=== PATIENT | female | born 1975 | race Caucasian/White ===

== ENCOUNTER → 2019-08-17 | Outpatient (CLI) | payer OTHER | END | disposition home or self-care (01) | LOC: RAD 11:10 | PROVIDERS: ATTEND Internal Medicine Critical Care Medicine | DX: R91.8 Other nonspecific abnormal finding of lung field (principal) | CPT/HCPCS: 71250 ==

== ENCOUNTER → 2020-07-23 | Outpatient (CLI) | payer OTHER | END | disposition home or self-care (01) | LOC: CFH 14:51 | PROVIDERS: ATTEND Internal Medicine | DX: R91.8 Other nonspecific abnormal finding of lung field (principal) | CPT/HCPCS: 71250 ==

== ENCOUNTER 2020-08-21 08:21 | Day surgery (SDC) | payer OTHER ==
[~2020-08-21] VITALS: Ht 167.6 cm; Wt 122.3 kg
[~2020-08-21 08:21] MED LIST: ALBU8.5H8 INH; ALBUTEROL NEB NEB; ASPI81TA45 PO; BACL-19 PO; CETI10TA76 PO; CHOL10003 PO; DICL50TA2 PO; FLUT1BLS INH; LAMO100T63 PO; LOSA25TA25 PO; MONT10TA96 PO; OCRE300V IV; RIZA10TA34 PO; TIOT4MIS5 INH; TIZA-106 PO
[2020-08-21] MEDS ORDERED: MIDAZOLAM 1 MG/ML, 5ML ONE ×2 (08:31→08:32)
[2020-08-21] MEDS ORDERED: DIPHENHYDRAMINE 50 MG/ML, 1ML ONE (08:32)
[2020-08-21] MEDS ORDERED: GLYCOPYRROLATE 0.4 MG/2 ML, 2ML ONE (08:32)
[2020-08-21] MEDS ORDERED: FENTANYL PF 250 MCG/5ML ONE (08:32)
[2020-08-21] MEDS ORDERED: ALBUTEROL SULFATE 2.5 MG/3 ML NPPB SCH (09:00)
[2020-08-21] MEDS ORDERED: GABA600T7 PO (09:22)
[2020-08-21] MEDS ORDERED: PRED50TA PO (09:22)
[2020-08-21 09:26] VITALS: BP 180/99
[2020-08-21] MEDS ORDERED: SODIUM CHLORIDE 0.9% 1,000 ML IV SCH (09:30)
[2020-08-21] MEDS ORDERED: CHLORHEXIDINE 15 ML UDC ONE (09:43)
[2020-08-21] MEDS ORDERED: ALBUTEROL SULFATE 2.5 MG/3 ML ONE ×2 (09:55→12:56)
[2020-08-21] MEDS ORDERED: CHLORHEXIDINE 15 ML UDC MM ONE (10:00)
[2020-08-21] MEDS ORDERED: LIDOCAINE 4% TOPICAL SOLUTION 50 ML ONE (12:00)
[2020-08-21] MEDS ORDERED: LIDOCAINE GEL 2%, 5ML ONE (12:00)
== END 2020-08-21 14:15 | disposition home or self-care (01) ==
LOC: OUT 08:21 → EDSTATUS 10:30 → OUT 14:15
PROVIDERS: ATTEND Internal Medicine
DX: J45.50 Severe persistent asthma, uncomplicated (principal); R91.1 Solitary pulmonary nodule; G35 Multiple sclerosis; I10 Essential (primary) hypertension; G40.89 Other seizures; Z79.82 Long term (current) use of aspirin; Z79.899 Other long term (current) drug therapy; Z88.8 Allergy status to other drugs, medicaments and biological substances
CPT/HCPCS: 31660; 94640; 99152; 99153; C1886; J1200; J2250; J3010; J7030; J7613